=== PATIENT | female | born 1980 ===

== ENCOUNTER 2024-09-04 06:34 | Day surgery (SDC) | payer BC ==
[2024-09-02 13:15] LABS: Absolute Basophils 0.1 K/uL (0-0.5); Absolute Lymphocytes (CBC) 2.4 K/uL (0.7-4.9); Absolute Monocytes 0.4 K/uL (0.1-1.3); Absolute Neutrophil 3.8 K/uL (1.8-8.0); Basophils % 0.8 % (0-1.3); Eosinophils % 0.5 % (0-4.4); Hematocrit 41.1 % (36.0-45.0); Hemoglobin 13.1 g/dL (12.0-15.0); Lymphocytes % 36.1 % (15.3-44.8); MCH 29.1 pg (27.0-35.0); MCV 91.1 fL (80-100); MPV 8.1 fL (7.6-11.3); Monocytes % 5.8 % (3.3-12.3); Neutrophils % 56.8 % (41.7-73.7); Platelets 225 thou/uL (152-406); RBC Red Blood Cell Count 4.51 M/uL (3.86-4.86); Red Cell Distribution Width 13.3 % (12.1-15.2)
[2024-09-02 13:38] LABS: Anion Gap 7.5 mEq/L (5.0-15.0); Potassium 4.5 mEq/L (3.5-5.1)
[2024-09-02 14:09] LABS: PT Prothrombin Time 10.7 SECONDS (9.4-12.5); PTT, Activated Partial Thromb 30.1 SECONDS (24.3-36.9); Protime INR 0.95
[2024-09-02 14:10] LABS: Specific Gravity 1.021 (1.005-1.030); Sqamous Epithelial <5 /HPF (None Seen); Urine Bacteria None Seen /HPF (<20); Urine Bilirubin NEGATIVE (Negative); Urine Blood Trace (Negative); Urine Clarity Clear (Clear); Urine Color Light-Yellow (Yellow); Urine Culture Reflex Order NOT NEEDED; Urine Glucose NEGATIVE (Negative); Urine Ketones NEGATIVE (Negative); Urine Microscopic Reflex YN ORDER UMIC; Urine Mucus Slight /HPF (None Seen); Urine Nitrite NEGATIVE (Negative); Urine Protein NEGATIVE (Negative); Urine Urobilinogen Normal (Normal); Urine WBC <5 /HPF (<5)
[2024-09-04] MEDS: Ringers Lactate 1,000 ML IV ONE ×2 (06:34→09:28)
[2024-09-04] MEDS ORDERED: dexAMETHasone 4 MG/ML VIAL ONE (06:37)
[2024-09-04] MEDS ORDERED: LIDOCAINE 1% MPF 2 ML AMPULE ONE (06:37)
[2024-09-04] MEDS ORDERED: NS 0.9% VIAL 10 ML ONE (06:37)
[2024-09-04] MEDS ORDERED: Phenylephrine HCl 10 MG/ML 1 ML VIAL ONE (06:37)
[2024-09-04] MEDS ORDERED: GLYCOPYRROLATE 0.2 MG/ML SYR ONE (06:37)
[2024-09-04] MEDS ORDERED: ONDANSETRON 4 MG/2 ML VIAL ONE (06:37)
[2024-09-04] MEDS ORDERED: propofoL 200 MG/20 ML VIAL IV ONE (06:38)
[2024-09-04] MEDS ORDERED: ROCURONIUM 50 MG/5 ML VIAL IV ONE ×2 (06:38→09:19)
[2024-09-04] MEDS ORDERED: FENTANYL CITR 250 MCG/5 ML ONE (06:39)
[2024-09-04] MEDS ORDERED: MIDAZOLAM HCL 2 MG/2 ML INJ ONE (06:40)
[2024-09-04] MEDS: SCOPOLAMINE HYDROBROMIDE PATCH TD ONE (07:15)
[2024-09-04] MEDS ORDERED: NA CHLORIDE 0.9% 100 ML ONE ×2 (07:18→07:32)
[2024-09-04] MEDS ORDERED: CEFAZOLIN SODIUM 1 GM/VIAL ONE (07:31)
[2024-09-04] MEDS: CEFAZOLIN SODIUM 2 GM/VIAL ONE (08:03)
[2024-09-04] MEDS ORDERED: EPHEDRINE SULF 50 MG/ML VIAL ONE (08:04)
[2024-09-04] MEDS ORDERED: ATROPINE SULF 1 MG/10 ML SYR IV ONE ×2 (08:12→08:25)
[2024-09-04] MEDS: BUPIVACAINE 0.25% PF 30 ML VIAL ONE (08:30)
[2024-09-04] MEDS ORDERED: Ringers Lactate 1,000 ML IV ONE ×2 (08:50→09:21)
[2024-09-04] MEDS ORDERED: KETOROLAC 30 MG/ML INJ ONE (09:23)
[2024-09-04] MEDS: VASOPRESSIN 20 UNIT/ML VIAL ONE (09:47)
[2024-09-04] MEDS ORDERED: SUGAMMADEX SODIUM 200 MG/2 ML VIAL IV ONE (10:31)
[2024-09-04] MEDS: HYDROCODONE/APAP 5/325 MG TAB ONE (12:07)
[2024-09-04 13:30] VITALS: BP 99/56; TEMP 97.7; O2SAT 99
--- NOTE | 2024-09-04 15:56 | OP ---
Date of Procedure: 09/04/2024 Surgeon: Cele Gonzalez MD Bench Mechanic: Samantha Lovell. Preoperative Diagnoses: Pelvic pain, dyspareunia, AUB-O/A, and stress urinary incontinence. Postoperative Diagnoses: Pelvic pain, dyspareunia, AUB-O/A, and stress urinary incontinence, and pos sible endometriosis. Procedures Performed: 1.Total laparoscopic hysterectomy with bilateral salpingectomy. 2.Endometriosis excision. 3.Lysis of adhesions from the right lower quadrant anterior abdominal wall, periappendix, and left o varian cystectomy. 4.Midurethral sling (TVT-O), cystoscopy. Anesthesia: General endotracheal. Estimated Blood Loss: Less than 50. Urine Output: 300. Complications: No complications. Drains: Zaman catheter. Condition: Patient's condition is stable. Specimens: Uterus, bilateral tubes, left ovarian cyst/endometriosis, and right pararectal space endo metriosis that was removed from the Yan-Master sinus and the right pararectal space. Findings: Significant urethral hypermobility and laxity of the vagina. Stress urinary incontinence from hypermobility. Then, endometriosis on the left ovary as well as in the right pararectal space, there was a large Yan-Master sinus. The Yan-Master sinus on the right pararectal space was dissected and removed in its entirety separa ting it from the rectum. Then, the left ovarian endometriosis was excised. Periappendix adhesions w ere removed. Appendix did not appear to be acutely inflamed. On cystoscopy, both ureteric orifices were unremarkable with strong jets of urine. No evidence of any trauma or mesh in the bladder. Indications: The patient is a 43-year-old female presenting with irregular periods, AUB-O, dysmenorr hea and deep dyspareunia with pelvic pain. She had a workup that included a transvaginal ultrasound, endometrial sampling procedure. She had a discussion about treatment options for her bleeding and p ain, which included medical and surgical managements after being explained everything. The patient w anted to proceed with hysterectomy. She also has an abnormal Pap. The biopsy at 11 o'clock position on the cervix showed SUSAN 1. ECC was negative. No other significant dysplasia was noted based on th e abnormality that appeared on visual exam. This was done. So we discussed about the options of hys terectomy. There were also the necessity for regular Pap smear screening. For the control of her me norrhagia, she had an IUD that failed and then underwent endometrial ablation more than 10 years ago. Progressively, the pain has worsened over time and therefore the Pipelle biopsy had not shown any a typia or malignancy. The patient was consented for hysterectomy, bilateral salpingectomy, endometrio sis excision. She also had stress urinary incontinence that was significant and therefore she was tested with urody namics for voiding dysfunction, overactivity, definitely has a max capacity that is mostly within nor mal limits. However, her study demonstrated stress urinary incontinence without any voiding dysfunct ion with a PVR less than 5, capacity slightly decreased. Her MUCP was low with an average of less th an 30 cm of water. Therefore, discussed about the benefits and risks of sling and then the possibili ty of overactive bladder that could be progressive and leading to more lower urinary tract symptoms, irritative symptoms, and necessity to treat that could be unrelated to her stress incontinence. Description Of Procedure: She was consented for sling and taken back to the OR, re-consented in the preoperative area. Placed in a supine fashion on the operating table, general anesthesia was given. She was placed in a dorsal lithotomy position using Yan stirrups. Abdomen was prepped with ChloraPrep; vulva, vagina and perineum with Betadine, draped in a sterile fashion. Arms were tucked by the side. Positioning was checked. SCDs were started. Time-out was done and procedure started. 2 g of Ancef was given. Then a speculum was placed to expose the cervix. Anterior lip grasped with single-tooth dilated to 1 6-[place]. A large cup by uterine manipulator was introduced and fixed in place. Zaman was placed to drain the bladder, 14-[place] latex-free Zaman, and this area was draped. A 1 cm supraumbilical incision was made with a scalpel using the open laparoscopy technique. Fascia was incised, tagged with 0 Vicryl sutures on the edge of peritoneum, entered sharply. She is status post abdominoplasty, and therefore I could see the changes and scar related to this. After peritoneum was entered and insufflated, the site of entry was checked and was unremarkable. We could see the adhesions in the upper abdomen from the omentum to the anterior abdominal wall. Howev er, I was able to place the left lower quadrant 5 port and which was converted to 8 port due to the l ooseness of the tissue and the constant need to hold the trocar. A 10/12 port was placed in the supr apubic area. The patient was placed in a significant T-katelin and the procedure was started. The carlita ls were retracted superiorly into the upper abdomen. There was no need for taking down all the oment al adhesions as these were above the level of the umbilical trocar. The right lower quadrant omental adhesions to the anterior abdominal wall were taken down. Then the periappendix adhesions were note d and these were just left alone as these did not have any signs of acute inflammation or limitation of mobility of the bowels. Both tubes and ovaries were visualized. Endometriosis was noted on the left ovary and then no endome triosis implants noted on the peritoneum, anterior and posterior broad ligaments and anterior and pos terior cul-de-sacs. However, the right pararectal space had a large Yan-Master sinus between the u terosacral ligament and the right lateral margin of the rectum. So plan was to remove this endometri osis. The peritoneum was opened up on the posterior vaginal wall and the right pararectal space. Then diss ection of the peritoneum was carried towards the uterosacral in the right pararectal space. Once the space was opened up, a medium size EEA Sizer was placed in the colon and the rectum and deviated to the left. Then, dissection was carried to remove all the underlying scar tissue off the rectal vault and dissection was carried towards the pararectal space from the pelvic floor and the scar was disse cted and retracted laterally and then once the scar was dissected from the right, entire tissue was d issected and removed and handed out for permanent pathology. The right ovarian endometriosis appeared to be on the capsule and there was a cyst immediately medial and lateral to it. So this was opened up and the endometriotic implant was excised and this was guzman ded off for permanent pathology. On the utero-ovarian ligament, there was a small nodule of endometr iosis and this was cauterized as it was difficult to excise it due to the vascularity. Hysterectomy was then started. The mesosalpinx was taken down on the left side with the help of the LigaSure. Then, utero-ovarian l igament taken down, round ligament taken down. The broad ligament also was taken down to the level o f the vessels. Then anterior peritoneum raised to develop the bladder flap and posterior peritoneum towards the posterior cup. Vessels were exposed. These were cauterized and cut and the cardinal lig aments were taken down with the help of the LigaSure and the bipolar. Then monopolar was used to real e the tissue down on the opposite side. The mesosalpinx was taken down. Round ligament, utero-ovari an ligament were all taken down. The right broad ligament was taken down to skeletonize the vessels. The vessels opened up. Anterior broad ligament peritoneum was connected to the bladder posteriorly to the opposite side. Vessels were taken down with the help of the LigaSure and then the cardinal l igaments with the bipolar, curved tip [place] and monopolar hook blade. Circumferential colpotomy w as performed with a monopolar hook blade. There was small amount of bleeding from the right lateral aspect of the cuff. Once this was cauterized with the bipolar, then a 0 PDS suture was placed at the corner to tie this down and there was excellent hemostasis. Two simple angle 0 PDS sutures were lele navi on the cuff and then 3 [id number] in the middle taking the entire connective tissue of the anterior and posterior whitley including the uterosacral ligaments into the closure. Posterior cul-de-sac was thoroughly irrigated and suctioned. Sizer was placed and checked to make champagne re there was no evidence of any injury to the bowel wall. The right pararectal space was clear and a ll the endometriosis was removed. After thorough irrigation and suction, hemostasis was secured. Lit th ureters had no evidence of electrical, mechanical, or thermal injury to them. All the trocars wer e removed. Gas was desufflated. Patient was flattened out. Fascia at the umbilicus was closed with the help of 0 Vicryl tag sutures tied to each other and simple 0 Vicryl stitch at the suprapubic fas cial site. All skin incisions were closed with 4-0 Monocryl and Dermabond applied. The patient was placed in Trendelenburg position and the mid urethral area was picked up with 2 Allis clamps, injected with dilute vasopressin 15 mL in the center and on both sides. Midurethral area wa s incised 1.5 cm and a cut down to the level below the connective tissue. Tunnels were created on lit th sides towards the ipsilateral obturator space. Once the obturator membrane was perforated, the tr ack was expanded by opening the scissors and pulling back. This was done on both sides without any p roblems. I then placed the wing guide passed the needle with the plastic dilator on at once at the e xit point with lateral to 2 cm lateral to the groin fold and slightly above the external meatus. Exi t point was made with a 15 blade. Then, the plastic sheath pulled out and needle removed. Sheath an d the mesh were held with a Jelly and the dilator cut. Similar pass on the opposite side was taken. Then midurethral area was tensioned with Metzenbaum scissors between the urethra and the sling. Onc e the mesh was tensioned and the plastic sleeves were pulled out, the mesh was cut flush with the ski n. The skin closed with Dermabond. Then, the scissors removed, irrigated the mesh in the vaginal sp jose francisco with the antibiotic solution. Then, this was closed with 3-0 Vicryl in a continuous running lock ed fashion. Zaman was removed and cystoscopy was performed with 30-degree lens with normal saline. Strong ureteric jets were seen from both ureteric orifices. The pelvic floor appeared to be very wel l suspended to the uterosacrals and point C was at -8. Zaman was replaced. Patient was recovered fr om anesthesia. Instrument, needle, and sponge counts were correct at the end of the case. The patie nt tolerated the procedure well. She was recovered from anesthesia and taken to PACU in stable condi tion. Voiding trial in the recovery room. LOURDES/TIRSO Voice ID: [id number] Report ID: [id number]
== END 2024-09-04 12:50 | disposition home or self-care (01) ==
LOC: OR 06:34
PROVIDERS: ATTEND Obstetrics & Gynecology
PROC: 0UT74ZZ Resection of Bilateral Fallopian Tubes, Percutaneous Endoscopic Approach (ICD-10-PCS; 2024-09-04)
PROC: 0UB14ZZ Excision of Left Ovary, Percutaneous Endoscopic Approach (ICD-10-PCS; 2024-09-04)
PROC: 0DBP4ZZ Excision of Rectum, Percutaneous Endoscopic Approach (ICD-10-PCS; 2024-09-04)
PROC: 0TSD0ZZ Reposition Urethra, Open Approach (ICD-10-PCS; 2024-09-04)
PROC: 0UB24ZZ Excision of Bilateral Ovaries, Percutaneous Endoscopic Approach (ICD-10-PCS; 2024-09-04)
PROC: 0UT94ZZ Resection of Uterus, Percutaneous Endoscopic Approach (ICD-10-PCS; principal; 2024-09-04 07:30)
DX: R10.2 Pelvic and perineal pain (principal); N94.12 Deep dyspareunia; N92.6 Irregular menstruation, unspecified; N39.3 Stress incontinence (female) (male); N80.102 Endometriosis of left ovary, unspecified depth; N80.519 Endometriosis of the rectum, unspecified depth; N83.8 Other noninflammatory disorders of ovary, fallopian tube and broad ligament; N83.202 Unspecified ovarian cyst, left side
CPT/HCPCS: 85025; 81001; 80048; 36415; 86900; 86850; 81025; 85610; 86901; 88305; 88307; 85730; 58571; 58662 ×2; 57288; A4216; J2704; J1100; J2371; J0461 ×2; J2250; J3010; J2405; J7120 ×4; J0690